=== PATIENT | male | born 1960 | race Hispanic/Latino ===

== ENCOUNTER 2017-03-06 06:50 | Day surgery (SDC) | payer BC ==
[2017-03-06 07:35] VITALS: BMI 25.0
[2017-03-06 07:48] VITALS: RESP 18
[2017-03-06] MEDS ORDERED: Bupivacaine 0.5% Inj(30mL) ONE (09:38)
[2017-03-06] MEDS ORDERED: Lidocaine 1% Inj (20ml) ONE (09:38)
[2017-03-06] MEDS ORDERED: Propofol 10 mg/ml Inj (20 ML) ONE (11:34)
[2017-03-06] MEDS ORDERED: Midazolam 2 MG/2 ML VIAL ONE ×2 (11:34→11:45)
[2017-03-06] MEDS ORDERED: Oxycodone/Acetaminophen 5/325 mg Tab PO PRN (12:27)
--- NOTE | 2017-03-06 12:33 | PCM.SURG1 ---
Surgeon's Initial Post Op Note - Surgeon's Notes Surgeon: Dr. Jovel Director Of Labor And Delivery: Sandeep Toure PGY2 Type of Anesthesia: IV Sedation, Local Pre-Operative Diagnosis: neck lipoma Operative Findings: 5cm lipoma of neck Post-Operative Diagnosis: Same Operation Performed: Excision of lipoma of neck Specimen/Specimens Removed: lipoma Estimated Blood Loss: EBL {In ML}: 10 Blood Products Given: N/A Drains Used: No Drains Post-Op Condition: Good Date of Surgery/Procedure: 03/06/17 Time of Surgery/Procedure: 12:33
[2017-03-06 13:21] VITALS: TEMP 97.6
[2017-03-06 13:49] VITALS: BP 119/68; PULSE 71; O2SAT 96
--- NOTE | 2017-03-15 21:18 | OP ---
PROCEDURE DATE: 03/06/2017 PREOPERATIVE DIAGNOSIS: Mass at the nape of the neck. POSTOPERATIVE DIAGNOSIS: Mass at the nape of the neck. OPERATION PERFORMED: Excision. SURGEON: Maninder Arrington MD SOAKING TANK WORKER: Dr. Marvin. DESCRIPTION OF PROCEDURE: In the operating room, the patient was identified by my consent, name, number, date and my lupe. The patient was positioned after anesthesia, gave IV sedation, 1% Xylocaine/Marcaine was infiltrated along the length of the incision and it was opened according to the premapped area. Circumferential dissection of the lipoma allowed it to be slowly brought into the wound, was taken with Vicryl and cautery and removed in toto. It was closed with Vicryl followed by subcuticular PDS. The patient was taken to recovery room in good condition after sponge and needle counts were declared correct. Maninder Arrington MD
== END 2017-03-06 14:05 | disposition home or self-care (01) ==
LOC: SDS 06:50
PROVIDERS: ATTEND Surgery
DX: D17.0 Benign lipomatous neoplasm of skin and subcutaneous tissue of head, face and neck (principal)
CPT/HCPCS: 21552; 88307; J0690; J2250; J2405; J2704; J3010 ×2